=== PATIENT | male | born 1985 | race Caucasian/White ===

== ENCOUNTER 2016-07-11 18:21 | Emergency (ER) | payer OTHER ==
[~2016-07-11] VITALS: Ht 177.8 cm; Wt 72.6 kg
[2016-07-11 18:21] VITALS: BP 139/73
[2016-07-11] MEDS ORDERED: DERMABOND TOPICAL SKIN ADHESIVE TOP ONE (20:30)
== END 2016-07-11 20:35 | disposition home or self-care (01) ==
LOC: M ED 19:34
DX: S01.81XA Laceration without foreign body of other part of head, initial encounter (principal); W22.8XXA Striking against or struck by other objects, initial encounter; Y92.139 Unspecified place military base as the place of occurrence of the external cause; Y93.89 Activity, other specified; Y99.1 Military activity